=== PATIENT | female | born 1960 | race Caucasian/White ===

== ENCOUNTER 2024-04-15 06:00 | Outpatient (RCR) | payer MEDICARE, SELFPAY | END 2024-05-15 23:59 | disposition home or self-care (01) | LOC: TPT 06:00 | PROVIDERS: Visit Provider Physician Assistant | DX: R29.898 Other symptoms and signs involving the musculoskeletal system (principal); M79.651 Pain in right thigh | CPT/HCPCS: 97161 ==

== ENCOUNTER 2024-05-16 06:00 | Outpatient (RCR) | payer MEDICARE, SELFPAY | END 2024-06-14 23:59 | disposition home or self-care (01) | LOC: TPT 06:00 | PROVIDERS: Visit Provider Physician Assistant | DX: M17.11 Unilateral primary osteoarthritis, right knee (principal); M79.651 Pain in right thigh | CPT/HCPCS: 97110 ==

== ENCOUNTER 2024-06-15 05:00 | Outpatient (RCR) | payer MEDICARE, SELFPAY | END 2024-07-15 23:59 | disposition home or self-care (01) | LOC: TPT 05:00 | PROVIDERS: Visit Provider Physician Assistant | DX: M17.11 Unilateral primary osteoarthritis, right knee (principal); M79.651 Pain in right thigh | CPT/HCPCS: 97110 ==